=== PATIENT | female | born 1985 | race Caucasian/White ===

== ENCOUNTER 2021-04-11 06:27 | Day surgery (SDC) | payer OTHER ==
[~2021-04-11] VITALS: Ht 157.5 cm; Wt 82.5 kg
[2021-04-11] MEDS ORDERED: MAXALT5 MG PO (06:51)
[2021-04-11] MEDS ORDERED: TOPAMAX 25MG25 M1 PO (06:51)
[2021-04-11 06:54] VITALS: BP 115/76; PULSE 96; TEMP 98.4
[2021-04-11] MEDS ORDERED: NORCO 325 MG-51 TAB PO (09:56)
[2021-04-11 10:30] VITALS: BP 104/67; PULSE 76; TEMP 98.5
--- NOTE | 2021-04-11 10:30 | NUR ---
Pt returns to [place] [facility] from PACU, drowsy but awakens easily, denies pain or nausea. VSS, call light in reach. No family here at this time, will call for ride home.
[2021-04-11 10:45] VITALS: BP 103/67; PULSE 74
--- NOTE | 2021-04-11 10:45 | NUR ---
Pt tolerating pepsi and applesauce well, denies pain or nausea. VSS. Call light in reach.
[2021-04-11 11:00] VITALS: BP 102/69; PULSE 69
--- NOTE | 2021-04-11 11:15 | NUR ---
Pt up to the bathroom and voids without difficulty, denies pain, gets dressed and is awaiting her ride home. Discharge instructions provided.
--- NOTE | 2021-04-11 12:00 | NUR ---
Pt reports her ride home is here and she would like a pain pill before she goes home. Pt taken out via wheelchair and left in care of her friend at 1210.
== END 2021-04-11 12:10 | disposition home or self-care (01) ==
LOC: SDCO 06:27
DX: L05.91 Pilonidal cyst without abscess (principal); G43.909 Migraine, unspecified, not intractable, without status migrainosus; F17.210 Nicotine dependence, cigarettes, uncomplicated; Z20.822 Contact with and (suspected) exposure to COVID-19; Z79.899 Other long term (current) drug therapy
CPT/HCPCS: J2405; J7120